=== PATIENT | male | born 1965 | race Caucasian/White ===

== ENCOUNTER 2021-10-19 12:02 | Observation (INO) ==
[2021-10-19] MEDS ORDERED: Morphine 4 MG/ML VIAL (1 ml) IV ONE (12:26)
[2021-10-19] MEDS ORDERED: HYDROmorphone 1 MG/1 ML SYRINGE IV SLOW PU PRN (13:41)
[2021-10-19] MEDS ORDERED: Ondansetron 4 mg VIAL 2 MG/ML 2 ml VIAL IV PRN ×2 (13:41→17:46)
[2021-10-19] MEDS ORDERED: HYDROmorphone 0.5 MG/0.5 ML SYRINGE IV SLOW PU PRN (14:05)
[2021-10-19] MEDS ORDERED: Buffered Lidocaine 1% SYRIN 1 ml INTRADERM ONE (14:23)
[2021-10-19] MEDS ORDERED: Bupivacaine 0.25% EPI 200,000 30 ML SDV ONE (14:33)
[2021-10-19] MEDS ORDERED: Lidocaine 2% PF 5 ML VIAL ONE (14:53)
[2021-10-19] MEDS ORDERED: Ondansetron 4 mg VIAL 2 MG/ML 2 ml VIAL ONE (14:53)
[2021-10-19] MEDS ORDERED: Dexamethasone IV 4 MG/ML VIAL 1 ml VIAL ONE (14:53)
[2021-10-19] MEDS ORDERED: Propofol 10 MG/ML 20 ML BTL ONE (14:53)
[2021-10-19] MEDS ORDERED: fentaNYL 250 mcg/5 ml 50 MCG/ML 5 ml VIAL (250 MCG) ONE (14:54)
[2021-10-19] MEDS ORDERED: Rocuronium 50 mg VIAL 10 mg/ml 5 ml VIAL (50 mg) ONE (14:54)
[2021-10-19] MEDS ORDERED: Midazolam 5 mg/5 ml VIAL 1 mg/ml 5 ml VIAL (5 mg) ONE (14:54)
[2021-10-19] MEDS ORDERED: Lactated Ringers 1000 ml BAG 1,000 ML IV SCH (15:00)
[2021-10-19] MEDS ORDERED: Piperacillin/Tazobac ADVAN 3.375 GM in NS 0.9% 100 ml BAG 100 ML IV ONE (15:24)
[2021-10-19] MEDS ORDERED: Piperacillin/Tazobac 3.375 GM BAG ONE (15:45)
[2021-10-19] MEDS ORDERED: fentaNYL 100 mcg/2 ml 50 MCG/ML VIAL IV PRN (17:46)
[2021-10-19] MEDS ORDERED: Naloxone 0.4 mg VIAL 0.4 mg/ml 1 ml VIAL IV PRN (17:46)
[2021-10-19] MEDS ORDERED: Labetalol IV 5 MG/ML 20 ml VIAL IV PUSH ONE (17:48)
[2021-10-19] MEDS ORDERED: Labetalol IV 5 MG/ML 20 ml VIAL ONE (18:31)
[2021-10-19] MEDS: Lactated Ringers 1000 ml BAG 1,000 ML IV SCH (20:28)
[2021-10-20] MEDS: Lactated Ringers 1000 ml BAG 1,000 ML IV SCH (05:32)
[2021-10-20 08:41] LABS: Hematocrit 41 % (42-52); Hemoglobin 13.9 g/dL (14.0-18.0); Mean Corpuscular HGB Conc 34 g/dL (31-36); Mean Corpuscular Hemoglobin 30 pg (27-31); Mean Corpuscular Volume 88 fL (80-94); Mean Platelet Volume 7.7 fL (7.4-10.4); Platelet Count 266 10^3/uL (150-450); Red Cell Distribution Width 14 % (10-15); White Blood Count 16.7 10^3/uL (3.5-10.8)
[2021-10-20 09:24] LABS: Calcium 8.8 mg/dL (8.6-10.3); Potassium 4.7 mmol/L (3.5-5.0); eGFR CKD-EPI 99.3 (>60)
[2021-10-20 09:41] LABS: ABS Lymphocytes 1.7 10^3/ul (1.0-4.8); ABS Monocytes 1.6 10^3/ul (0-0.8); ABS Neutrophils 13.4 10^3/ul (1.5-7.7); Eosinophil % 0.1 %; Lymphocyte % 9.9 %
[2021-10-20 11:21] VITALS: BP 153/99
== END 2021-10-20 12:00 | disposition home or self-care (01) ==
LOC: ED 12:02 → OR 15:08 → SSU 15:08
PROVIDERS: ADMIT Surgery; ATTEND Surgery